=== PATIENT | male | born 1995 | race Caucasian/White ===

== ENCOUNTER 2018-11-21 13:04 | Emergency (ER) | payer SELFPAY ==
[~2018-11-21] VITALS: Ht 175.3 cm; Wt 74.0 kg
[2018-11-21 16:05] VITALS: BP 122/77
== END 2018-11-21 16:22 | disposition home or self-care (01) ==
LOC: ER 14:27
DX: R51 Headache (principal)
CPT/HCPCS: 99282

== ENCOUNTER 2019-08-16 21:41 | Emergency (ER) | payer SELFPAY ==
[~2019-08-16] VITALS: Ht 175.3 cm; Wt 77.0 kg
[2019-08-16 21:47] VITALS: BP 156/96
[2019-08-16] MEDS ORDERED: ONDANSETRON 4MG ODT PO ONE (22:00)
== END 2019-08-16 22:13 | disposition left against medical advice (07) ==
LOC: ER 21:41
DX: T43.641A Poisoning by ecstasy, accidental (unintentional), initial encounter (principal); Y92.89 Other specified places as the place of occurrence of the external cause
CPT/HCPCS: 93005; 99283